=== PATIENT | male | born 2005 | race Caucasian/White ===

== ENCOUNTER 2025-09-06 12:29 | Outpatient (CLI) | payer OTHER | END 2025-09-06 12:30 | disposition home or self-care (01) | LOC: SCSMRI 12:29 | PROVIDERS: ATTEND Orthopaedic Surgery | DX: S83.512A Sprain of anterior cruciate ligament of left knee, initial encounter (principal); S83.242A Other tear of medial meniscus, current injury, left knee, initial encounter; M25.462 Effusion, left knee; M25.062 Hemarthrosis, left knee; S82.112A Displaced fracture of left tibial spine, initial encounter for closed fracture ==